=== PATIENT | male | born 1965 | race Caucasian/White ===

== ENCOUNTER 2022-08-07 15:50 | Emergency (ER) | payer OTHER, SELFPAY ==
[2022-08-07 16:13] VITALS: BP 176/112; PULSE 103; RESP 18; TEMP 36.6; O2SAT 97; BMI 33.0
[2022-08-07 17:20] LABS: Add Urine Microscopic? NO; Charge for UA Resulting for Rev
[2022-08-07 17:29] LABS: Bilirubin Urine Neg (Negative); Blood Urine Neg (Negative); Glucose Urine UA Norm (Normal); Ketones Urine Negative (Negative); Leukocyte Esterase Urine Negative (Negative); Nitrate Urine Negative (Negative); Protein Urine Neg (Negative); Urine Appearance Clear (CLEAR); Urine Color Straw (Yellow); Urobilinogen Urine Norm (Negative); pH Urine 7 (5-7)
[2022-08-07 17:45] LABS: Basophils # 0.1 10^3/uL (0.0-0.1); Basophils % 0.8 %; Eosinophils # 0.2 10^3/uL (0.0-0.8); Eosinophils % 2.2 %; Hematocrit 42.5 % (42.0-52.0); Lymphocytes # 1.4 10^3/uL (0.8-4.8); Lymphocytes % 18.9 %; Mean Corpuscular HGB Conc 32.9 g/dL (30.0-36.0); Mean Corpuscular Hemoglobin 30.6 pg (28.0-34.0); Monocytes # 0.7 10^3/uL (0.2-0.9); Monocytes % 9.7 %; Neutrophils % 68.1 %; Nucleated Red Blood Cells % 0 %; Platelet Count 240 10^3/cmm (130-400); Red Blood Count 4.57 10^6/uL (4.1-5.3); Red Cell Distribution Width 12.9 % (12.1-15.1); White Blood Count 7.2 10^3/uL (4.0-10.0)
--- NOTE | 2022-08-07 18:07 | ED_ITS ---
HPI - General Adult General: Chief complaint: General Medical Stated complaint: UC sent for BP issues Time Seen by Provider: 08/07/22 18:07 History of Present Illness: Mr. Odell is a 57-year-old gentleman with history of hypertension who has been on medications in the past however is not currently presented to the emergency department due to hypertension. First noticed generalized abnormal feeling yesterday however no specific focal symptoms or reported infection. He felt more jittery and may be a little bit of a headache. Intensity symptoms mild however was correlated with increased blood pressure from baseline. Presented to urgent care who referred him to the ED for further evaluation. No other specific changes in health, exacerbating, or alleviating factors identified. Onset (ago): day(s) Location: head Severity: mild Quality: other Associated symptoms: Reports headache(s) and other Review of Systems General: Reports: 10 or more systems reviewed and unremarkable except in HPI and below Neuro: Reports: headache(s) PFSH ED PFSH: Medical History Hypertension Social History Smoking and tobacco status: never smoked Physical Exam Const: COMMON NORMALS: alert GENERAL APPEARANCE: cooperative and well developed HENMT: COMMON NORMALS: normocephalic and atraumatic HEAD & SCALP: normocephalic and atraumatic THROAT: posterior oropharynx normal Eye: COMMON NORMALS: conjunctivae normal CONJUNCTIVA: Yes conjunctivae normal SCLERA: sclerae normal Neck/C-Spine: COMMON NORMALS: supple GENERAL: Yes trachea midline Resp: COMMON NORMALS: clear to auscultation bilaterally EFFORT & INSPECTION: Yes able to speak in complete sentences AUSCULTATION: clear to auscultation bilaterally Cardio: COMMON NORMALS: regular rate and regular rhythm RATE: regular rate RHYTHM: regular rhythm GI: COMMON NORMALS: Soft to palpation PALPATION: Yes Soft to palpation and No Tenderness to palpation present (GI) Extremity: GENERAL: Yes normal exam except as noted and No edema Neuro: COMMON NORMALS: moves all extremities SENSORIUM/ORIENTATION: Yes alert and No Orientation impaired Psych: COMMON NORMALS: mental status grossly normal and Normal thought process present THOUGHT PROCESS: Normal thought process present Course Vital Signs: Vital signs: Vital Signs Temperature 98 F 08/07/22 16:13 Pulse Rate 78 10/30/22 19:00 Respiratory Rate 18 08/07/22 16:13 Blood Pressure 154/76 08/07/22 19:00 Pulse Oximetry 96 08/07/22 19:00 Oxygen Delivery Me thod 08/07/22 19:00 MDM - General Adult Medical Decision Making 57-year-old gentleman presenting due to high blood pressure with generalized symptoms. Patient is nontoxic on exam and no focal neurologic deficits appreciated. EKG shows sinus rhythm with nonspecific ST segment abnormalities, no STEMI. No evidence of endorgan dysfunction on labs. Most likely cause of symptoms he has hypertension. Norvasc given. The results of ED evaluation were discussed with the patient including prescr iptions and/or symptomatic cares (if applicable) including appropriate and responsible use, followup plan, and return precautions. The patient verbalized understanding and felt safe for discharge. Medical Records I reviewed the patient's medical records. Lab Data I reviewed the patient's lab results. : 08/07/22 17:31 08/07/22 17:31 Laboratory Results WBC 7.2 10^3/uL (4.0-10.0) 08/07/22 17: RBC 4.57 10^6/uL (4.1-5.3) 08/07/22 17: Hgb 14.0 g/dL (11.7-16.6) 08/07/22 17: Hct 42.5 % (42.0-52.0) 08/07/22 17: MCV 93.0 fl (80-94) 08/07/22 17: MCH 30.6 pg (28.0-34.0) 08/07/22 17: MCHC 32.9 g/dL (30.0-36.0) 08/07/22 17: RDW 12.9 % (12.1-15.1) 08/07/22 17: Plt Count 240 10^3/cmm (130-400) 08/07/22 17: MPV 10.0 fL (7.4-10.4) 08/07/22 17: Neut % (Auto) 68.1 % 08/07/22 17: Lymph % (Auto) 18.9 % 08/07/22 17:31 [place] % (Auto) 9.7 % 08/07/22 17:31 Eos % (Auto) 2.2 % 08/07/22 17:31 Baso % (Auto) 0.8 % 08/07/22 17:31 Neut # (Auto) 4.90 10^3/uL (1.8-7.7) 08/07/22 17:31 Lymph # (Auto) 1.4 10^3/uL (0.8-4.8) 08/07/22 17:31 [place] # (Auto) 0.7 10^3/uL (0.2-0.9) 08/07/22 17:31 Eos # (Auto) 0.2 10^3/uL (0.0-0.8) 08/07/22 17:31 Baso # (Auto) 0.1 10^3/uL (0.0-0.1) 08/07/22 17: Nucleated RBC % (auto) 0 % 08/07/22 17: Nucleated RBCs # 0.0 /100WBC 08/07/22 17:31 Sodium 137 mmol/L (136-145) 08/07/22 17:31 Potassium 4.1 mmol/L (3.5-5.1) 08/07/22 17: Chloride 101 mmol/L (98-107) 08/07/22 17: Carbon Dioxide 28 mmol/L (22-29) 08/07/22 17:31 Anion Gap 12.1 (5-19) 08/07/22 17:31 BUN 14 mg/dL (6-20) 08/07/22 17: Creatinine 0.8 mg/dL (0.7-1.2) 08/07/22 17:31 GFR Calculation 99.3 mL/min (90-130) 08/07/22 17:31 Glucose 140 mg/dL (65-115) H 08/07/22 17:31 Calculated Osmolality 287 mOsm/kg (285-295) 08/07/22 17:31 Calcium 9.4 mg/dL (8.5-10.5) 08/07/22 17:31 Total Bilirubin 0.4 mg/dL (0.15-1.2) 08/07/22 17:31 AST 14 U/L (0-40) 08/07/22 17:31 ALT 23 U/L (0-41) 08/07/22 17:31 Alkaline Phosphatase 77 U/L (40-130) 08/07/22 17:31 Troponin T Baseline 6 ng/L (0-15) 08/07/22 17:31 NT-Pro-B Natriuret Pep 44 pg/mL (0-125) 08/07/22 17:31 Total Protein 7.1 g/dL (6.6-8.7) 08/07/22 17:31 Albumin 4.1 g/dL (3.5-5.2) 08/07/22 17:31 Globulin 3.0 g/dL (1.3-4.6) 08/07/22 17:31 Urine Color Straw (Yellow) 08/07/22 17:03 Urine Appearance Clear (CLEAR) 08/07/22 17:03 Urine pH 7 (5-7) 08/07/22 17:03 Ur Specific [place] 1.010 (1.005-1.030) 08/07/22 17:03 Urine Protein Neg (Negative) 08/07/22 17:03 Urine Glucose (UA) Norm (Normal) 08/07/22 17:03 Urine Ketones Negative (Negative) 08/07/22 17:03 Urine Blood Neg (Negative) 08/07/22 17:03 Urine Nitrate Negative (Negative) 08/07/22 17:03 Urine Bilirubin Neg (Negative) 08/07/22 17:03 Urine Urobilinogen Norm mg/dL (Negative) 08/07/22 17:03 Ur Leukocyte Esterase Negative (Negative) 08/07/22 17:03 Discharge Plan Discharge Patient Disposition: Home Clinical Impression: Hypertension Condition: Stable Prescriptions: New Norvasc 5 mg tablet 5 mg PO DAILY Qty: 30 0RF No Action zinc acetate 50 mg (zinc) Capsule 50 mg PO DAILY Vitamin C 500 mg Tablet 500 mg PO DAILY ibuprofen 200 mg Tablet 400 mg PO BID PRN (Reason: Pain) allopurinol 300 mg tablet 300 mg PO DAILY Claritin 10 mg Tablet 10 mg PO DAILY PRN (Reason: Allergy Symptoms) Vitamin D3 25 mcg (1,000 unit) Capsule 25 mcg PO DAILY Discharge Orders: Discharge ED (Routine); Ordered 08/07/22 Ordered By: Newton Keith Referrals: Hoang Kraus DO [Primary Care Provider] - Discharge Diet: Usual diet Discharge Activity: Increase activity as tolerated Patient Instructions: Amlodipine (By mouth), Hypertension (ED) Activity Restrictions/Additional Instructions: Thank you for visiting the emergency department. You were seen and evaluated for high blood pressure. There is no evidence of acute physiologic stress created by the high blood pressure as her laboratory studies and EKG looked fairly normal. Please follow-up with a primary care provider. You will be initiated on Norvasc, they may elect to increase or decrease this as appropriate or switch this medication altogether. Return to the emergency department for chest pain, shortness of breath, new neurologic changes, or anything else that you are concerned about a feel needs emergency department evaluation. Coding Level of Care Code ED Secondary Set Up Man for Brayan Soto
[2022-08-07 18:13] LABS: Alanine Aminotransferase 23 U/L (0-41); Albumin Level 4.1 g/dL (3.5-5.2); Alkaline Phosphatase 77 U/L (40-130); Anion Gap 12.1 (5-19); Aspartate Amino Transferase 14 U/L (0-40); Blood Urea Nitrogen 14 mg/dL (6-20); Calcium 9.4 mg/dL (8.5-10.5); Carbon Dioxide 28 mmol/L (22-29); Chloride 101 mmol/L (98-107); Glomerular Filtration Rate 99.3 mL/min (90-130); Glucose 140 mg/dL (65-115); NT Pro B Type Natriuretic Pept 44 pg/mL (0-125); Osmolality Calculated 287 mOsm/kg (285-295); Potassium 4.1 mmol/L (3.5-5.1); Sodium 137 mmol/L (136-145); Total Bilirubin 0.4 mg/dL (0.15-1.2); Total Protein 7.1 g/dL (6.6-8.7)
[2022-08-07 18:17] VITALS: BP 173/102; PULSE 81; O2SAT 95
[2022-08-07 18:30] VITALS: BP 150/90; PULSE 81; O2SAT 97
--- NOTE | 2022-08-07 18:30 | ECG_ITS ---
[facility] Test Date: 2022-08-07 Pat Name: Riaz Odell Department: Room: Gender: Male [employer]: : 1965 Requested By: Newton Keith Order Number: [id number] Jenise MD: Nando Lance M.D. Measurements Intervals [place] Rate: 86 P: 54 RI: 197 QRS: -27 QRSD: 94 T: 29 QT: 344 QTc: 413 Interpretive Statements SINUS RHYTHM WITH SINUS ARRHYTHMIA BORDERLINE LEFT AXIS DEVIATION [QRS AXIS < -20] No previous ECG available for comparison Electronically Signed On 08-08-2022 14:51:43 CDT by Nando Lance M.D. [id number]
[2022-08-07 18:45] LABS: Troponin(5th) Baseline 6 ng/L (0-15)
[2022-08-07 19:00] VITALS: BP 154/76; PULSE 78; O2SAT 96
[2022-08-07] MEDS: amlodipine 5 mg Tablet PO (19:13)
== END 2022-08-07 19:20 | disposition home or self-care (01) ==
PROVIDERS: Student in an Organized Health Care Education/Training Program; Emergency Provider Emergency Medicine; PCP Internal Medicine
DX: I10 Essential (primary) hypertension (principal)
CPT/HCPCS: 80053; 81003; 83880; 84484; 85025; 93005; 99284